=== PATIENT | female | born 1985 ===

== ENCOUNTER 2019-02-26 05:24 | Emergency (ER) | payer OTHER ==
[2019-02-26] MEDS ORDERED: NS 0.9% 1000 ML** 1,000 ML IV ONE (07:03)
[2019-02-26] MEDS ORDERED: Clindamycin 600 MG IVPREMIX(* 600 MG in PREMIX* 0 ML IV ONE (07:03)
[2019-02-26] MEDS ORDERED: Ofloxacin 0.3% (Ear Drop)* 5 ml BTL BOTH EARS ONE (07:03)
[2019-02-26] MEDS ORDERED: Ondansetron INJ* 2 MG/ML VIAL IV ONE (07:11)
[2019-02-26] MEDS ORDERED: Morphine 4 MG/ML VIAL (1 ml) 4 MG/ML VIAL IV ONE ×2 (07:11→09:25)
[2019-02-26] MEDS ORDERED: PREMIX* 0 ML ONE (07:24)
[2019-02-26 07:39] LABS: ABS Eosinophils 0.1 10^3/ul (0-0.6); ABS Lymphocytes 1.2 10^3/ul (1.0-4.8); ABS Monocytes 0.7 10^3/ul (0-0.8); ABS Neutrophils 6.2 10^3/ul (1.5-7.7); Eosinophil % 0.6 %; Hematocrit 36 % (35-47); Hemoglobin 12.2 g/dL (12.0-16.0); Lymphocyte % 15.1 %; Mean Corpuscular HGB Conc 34 g/dL (31-36); Mean Corpuscular Hemoglobin 28 pg (27-31); Mean Corpuscular Volume 82 fL (80-97); Platelet Count 248 10^3/uL (150-450); Red Blood Count 4.37 10^6 /uL (3.70-4.87); Red Cell Distribution Width 15 % (10-15); White Blood Count 8.2 10^3/uL (3.5-10.8)
[2019-02-26 07:49] LABS: Albumin 4.1 g/dL (3.2-5.2); Albumin/Globulin Ratio 1.4 (1-3); BUN/Creatinine Ratio 14.8 (8-20); C Reactive Protein 55.8 mg/L (<8.01); Calcium 8.6 mg/dL (8.6-10.3); EGFR African American 159.3 (>60); EGFR Non-African American 131.7 (>60); Globulin 2.9 g/dL (2-4); Potassium 3.7 mmol/L (3.5-5.0); Total Bilirubin 0.3 mg/dL (0.2-1.0)
[2019-02-26 11:40] VITALS: BP 117/79
--- NOTE | 2019-02-26 12:28 | ED ---
Throat Pain/Nasal Congestion - HPI Summary HPI Summary: This patient is a 33-year-old female presenting to the ED with right ear pain. She states 4 days ago she was seen at [facility] and was given ofloxacin drops as well as Augmentin for an otitis media. She states despite this, her symptoms have worsened. She is now having pain in which prior to this she only had decreased hearing. She is endorsing the pain at 9/10. Denies any radiation of pain. Denies any headache. Denies any eye pain or drainage, rhinorrhea, chest pain or SOB. She has been taking several doses of ibuprofen without relief. She has not been using heat or ice. Denies any fevers, sweats , chills. - History of Current Complaint Chief Complaint: EDEarPain Time Seen by Provider: 02/26/19 05:58 Hx Obtained From: Patient Onset/Duration: Sudden Onset Severity: Moderate Associated Signs And Symptoms: Positive: Negative - Epiglottits Risk Factors Epiglottis Risk Factors: Negative - Allergies/Home Medications Allergies/Adverse Reactions: Allergies Allergy/AdvReac Type Severity Reaction Status Date / Time No Known Allergies Allergy Verified 02/26/19 05:32 Home Medications: Home Medications Amoxicillin/Potassium Clav 1 tab PO BID 02/26/19 [History Confirmed 02/26/19] Levothyroxine TAB* [Synthroid 125 MCG TAB*] 125 mcg PO QAM 02/26/19 [History Confirmed 02/26/19] Ofloxacin 0.3% (Ear Drop)* [Floxin 0.3% OTIC.DENISSE (Ear Drop)] 5 drop RIGHT EAR BID 02/26/19 [History Confirmed 02/26/19] PMH/Surg Hx/FS Hx/Imm Hx Previously Healthy: Yes Endocrine/Hematology History: Denies: Hx Diabetes Cardiovascular History: Denies: Hx Hypertension, Hx Pacemaker/ICD Respiratory History: Denies: Hx Asthma Sensory History: Denies: Hx Hearing Aid Psychiatric History: Denies: Hx Panic Disorder - Surgical History Surgery Procedure, Year, and Place: TONSILS - Immunization History Hx Pertussis Vaccination: No Immunizations Up to Date: Yes Infectious Disease History: No Infectious Disease History: Denies: Traveled Outside the [place] in Last 30 Days - Social History Occupation: Unemployed, Student Lives: With Family Alcohol Use: None Hx Substance Use: No Substance Use Type: Reports: None Smoking Status (MU): Never Smoked Tobacco Review of Systems Constitutional: Negative Negative: Fever, Chills, Fatigue, Skin Diaphoresis Positive: Ear Ache - Right ear ache Negative: Palpitations, Chest Pain Negative: Shortness Of Breath, Cough Genitourinary: Negative Positive: no symptoms reported, see HPI Negative: Arthralgia, Myalgia Neurological: Negative All Other Systems Reviewed And Are Negative: Yes Physical Exam Triage Information Reviewed: Yes Vital Signs On Initial Exam: Initial Vitals Temp Pulse Resp BP Pulse Ox 98.9 F 85 16 124/80 98 02/26/19 05:25 02/26/19 05:25 02/26/19 05:25 02/26/19 05:25 02/26/19 05:25 Vital Signs Reviewed: Yes Appearance: Positive: Well-Appearing, Well-Nourished Skin: Positive: Warm, Skin Color Reflects Adequate Perfusion Head/Face: Positive: Normal Head/Face Inspection Eyes: Positive: EOMI, MAAME, Conjunctiva Clear ENT: Positive: TM bulging, Other - see course of treatment Neck: Positive: Supple, No Lymphadenopathy Respiratory/Lung Sounds: Positive: Clear to Auscultation, Breath Sounds Present Cardiovascular: Positive: RRR, Pulses are Symmetrical in both Upper and Lower Extremities Musculoskeletal: Positive: Normal, Strength/ROM Intact Neurological: Positive: Sensory/Motor Intact, Alert, Oriented to Person Place, Time, Speech Normal Psychiatric: Positive: Affect/Mood Appropriate Diagnostics - Vital Signs Vital Signs Temp Pulse Resp BP Pulse Ox 02/26/19 11:38 86 14 117/79 99 02/26/19 10:38 77 115/78 99 02/26/19 10:08 75 108/73 98 02/26/19 10:00 83 98 02/26/19 09:38 78 103/72 97 02/26/19 09:31 16 02/26/19 09:08 81 111/76 98 02/26/19 09:00 76 98 02/26/19 08:38 73 107/68 97 02/26/19 08:08 71 102/67 98 02/26/19 08:00 67 98 02/26/19 07:38 88 107/74 98 02/26/19 07:37 72 99 02/26/19 07:33 18 02/26/19 05:25 98.9 F 85 16 124/80 98 - Laboratory Lab Results: Lab Results 02/26/19 02/26/19 02/26/19 Range/Units 07:24 07:24 07:24 WBC 8.2 (3.5-10.8) 10^3/uL RBC 4.37 (3.70-4.87) 10^6 /uL Hgb 12.2 (12.0-16.0) g/dL Hct 36 (35-47) % MCV 82 (80-97) fL MCH 28 (27-31) pg MCHC 34 (31-36) g/dL RDW 15 (10-15) % Plt Count 248 (150-450) 10^3/uL MPV 8.0 (7.4-10.4) fL Neut % (Auto) 75.6 % Lymph % (Auto) 15.1 % [place] % (Auto) 8.2 % Eos % (Auto) 0.6 % Baso % (Auto) 0.5 % Absolute Neuts (auto) 6.2 (1.5-7.7) 10^3/ul Absolute Lymphs (auto) 1.2 (1.0-4.8) 10^3/ul Absolute Monos (auto) 0.7 (0-0.8) 10^3/ul Absolute Eos (auto) 0.1 (0-0.6) 10^3/ul Absolute Basos (auto) 0.0 (0-0.2) 10^3/ul Absolute Nucleated RBC 0.0 10^3/ul Nucleated RBC % 0.0 Sodium 136 (135-145) mmol/L Potassium 3.7 (3.5-5.0) mmol/L Chloride 106 (101-111) mmol/L Carbon Dioxide 23 (22-32) mmol/L Anion Gap 7 (2-11) mmol/L BUN 8 (6-24) mg/dL Creatinine 0.54 (0.51-0.95) mg/dL Est GFR ( Amer) 159.3 (>60) Est GFR (Non-Af Amer) 131.7 (>60) BUN/Creatinine Ratio 14.8 (8-20) Glucose 98 (70-100) mg/dL Lactic Acid 0.5 (0.5-2.0) mmol/L Calcium 8.6 (8.6-10.3) mg/dL Total Bilirubin 0.30 (0.2-1.0) mg/dL AST 14 (13-39) U/L ALT 12 (7-52) U/L Alkaline Phosphatase 60 (34-104) U/L C-Reactive Protein 55.80 H (<8.01) mg/L Total Protein 7.0 (6.4-8.9) g/dL Albumin 4.1 (3.2-5.2) g/dL Globulin 2.9 (2-4) g/dL Albumin/Globulin Ratio 1.4 (1-3) Result Diagrams: 02/26/19 07:24 02/26/19 07:24 Lab Statement: Any lab studies that have been ordered have been reviewed, and results considered in the medical decision making process. EENT Course/Dx - Course Course Of Treatment: During the course treatment, the patient's evaluated for right ear pain with slight drainage from the ear. On examination, there is tympanic membrane bulging, opacification with erythema. There is significant amount of fluid in the middle ear which is opaque. Small amount of cerumen partially obstructing the ear canal. Small amount of suction was used with good effect of dislodgment of fluid in the external ear canal. This allows better visualization of the tympanic membrane. There is no pain to the mastoid area, however there is posterior auricular node enlargement as well as cervical LAD. Pain to the tragus, no erythema surrounding suggesting cellulitis. Denies any difficulty with swallowing. No pharyngeal erythema. Patient is given 2 rounds of 4 mg of morphine. This with good effect. Discussed with the patient close follow-up with ENT as well as [facility]. She'll continue to take Augmentin and ofloxacin drops as prescribed. She remains afebrile. She will continue to take ibuprofen as well as pain medication has been given to her. - Differential Diagnoses Differential Diagnoses: Other - Otitis media, otitis externa, mastoiditis - Diagnoses Provider Diagnoses: Otitis media Discharge ED - Sign-Out/Discharge Documenting (check all that apply): Patient Departure Patient Received Moderate/Deep Sedation with Procedure: No - Discharge Plan Condition: Stable Disposition: HOME Prescriptions: Hydrocodone/Acetamin 10/325(NF [[place] 10/325 (NF)] 1 tab PO Q8H #9 tab MDD 3 Patient Education Materials: Ear Infection (ED) Referrals: Carlos Gardiner MD [Medical Doctor] - Reddy GALDAMEZ,Marilynn Quintero [Primary Care Provider] - Additional Instructions: Please follow-up with ENT if symptoms persist Continue to take her antibiotics as prescribed Hydrocodone up to 3 times daily as needed for pain Do not take Tylenol while taking this medication You may take ibuprofen 600 mg 3 times daily, do not exceed this - Billing Disposition and Condition Condition: STABLE Disposition: Home
== END 2019-02-26 10:50 | disposition home or self-care (01) ==
LOC: ED 05:24
DX: H66.91 Otitis media, unspecified, right ear (principal); H92.01 Otalgia, right ear
CPT/HCPCS: 36415; 80053; 83605; 85025; 86140; 96361; 96365; 96375; 96376; 99283; A9270-GY; J2270; J2405